=== PATIENT | female | born 1965 | race Hispanic/Latino ===

== ENCOUNTER 2017-04-07 14:24 | Outpatient (CLI) | payer OTHER ==
[~2017-04-07 14:24] MED LIST: Gadobenate Dimeglumine 529 MG/1 ML (20ML VIAL) ONE
--- NOTE | 2017-04-07 16:32 | MRI ---
BRAIN MRI WITH AND WITHOUT CONTRAST: Comparison: 11-26-13, 10-13-15 History: Sellar mass. Technique: Brain MRI is performed with and without intravenous gadolinium administration. Multisequen tial, multiplanar imaging was performed. Pituitary protocol was utilized. FINDINGS: There is no parenchymal hemorrhage. No extraaxial hematoma. No parenchymal mass, mass effect, or midl ine shift. Brain volume is age appropriate. Cortical alvarez white matter differentiation is preserved. Ventricles and sulci are patent and symmetric. Central arterial flow voids are maintained. Absent res tricted diffusion. Adequate aeration of the sinuses and mastoid air cells. No pathologic enhancement of the brain parenchyma. Redemonstration of a 5 mm enhancing focus emanating from the midline of the sella. There is some mass effect upon the prechiasmatic optic nerve. Adenoma is favored. Remainder of the brain parenchyma is unremarkable. 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 POS: [facility]
== END 2017-04-07 14:25 | disposition home or self-care (01) ==
LOC: TBSIIMAG 14:24
PROVIDERS: ATTEND Surgery
DX: D49.7 Neoplasm of unspecified behavior of endocrine glands and other parts of nervous system (principal); D35.2 Benign neoplasm of pituitary gland
CPT/HCPCS: 70553; A9579

== ENCOUNTER 2017-12-22 08:08 | Outpatient (CLI) | payer OTHER | END 2017-12-22 08:09 | disposition home or self-care (01) | LOC: BICMAMMO 08:08 | PROVIDERS: ATTEND Obstetrics & Gynecology | DX: Z12.31 Encounter for screening mammogram for malignant neoplasm of breast (principal) | CPT/HCPCS: 77063; 77067 ==

== ENCOUNTER 2018-12-23 08:02 | Outpatient (CLI) | payer OTHER ==
--- NOTE | 2018-12-23 08:42 | MMO ---
Bilateral MAMMO Bilat Screen [facility]. CLINICAL HISTORY: Patient is 53 years old and is seen for screening. The patient has no family history of breast cancer. The patient has no personal history of cancer. VIEWS: The views performed were: bilateral craniocaudal with tomosynthesis and bilateral mediolateral oblique with tomosynthesis. FILMS COMPARED: The present examination has been compared to prior imaging studies performed at [facility] on 11/17/2014, 12/07/2015, 12/19/2016 and 12/22/2017. This study has been interpreted with the assistance of computer-aided detection. MAMMOGRAM FINDINGS: There are scattered fibroglandular densities. There are no suspicious masses, suspicious calcifications, or new areas of architectural distortion. IMPRESSION: THERE IS NO MAMMOGRAPHIC EVIDENCE OF MALIGNANCY. A ROUTINE FOLLOW-UP MAMMOGRAM IN 1 YEAR IS RECOMMENDED. THE RESULTS OF THIS EXAM WERE SENT TO THE PATIENT. ACR BI-RADS Category 1 - Negative MAMMOGRAPHY NOTE: 1. A negative mammogram report should not delay a biopsy if a dominant of clinically suspicious mass is present. 2. Approximately 10% to 15% of breast cancers are not detected by mammography. 3. Adenosis and dense breasts may obscure an underlying neoplasm. Reported by: JONNIE SANDERS MD Electonically Signed: [id number]
== END 2018-12-23 08:03 | disposition home or self-care (01) ==
LOC: BICMAMMO 08:02
PROVIDERS: ATTEND Obstetrics & Gynecology
DX: Z12.31 Encounter for screening mammogram for malignant neoplasm of breast (principal)
CPT/HCPCS: 77063; 77067

== ENCOUNTER 2019-12-29 07:53 | Outpatient (CLI) | payer OTHER ==
--- NOTE | 2019-12-29 08:27 | MMO ---
Bilateral MAMMO Bilat Screen [facility]. CLINICAL HISTORY: Patient is 54 years old and is seen for screening. The patient has no family history of breast cancer. The patient has no personal history of cancer. VIEWS: The views performed were: bilateral craniocaudal with tomosynthesis and bilateral mediolateral oblique with tomosynthesis. FILMS COMPARED: The present examination has been compared to prior imaging studies performed at [facility] on 12/07/2015, 12/19/2016, 12/22/2017 and 12/23/2018. This study has been interpreted with the assistance of computer-aided detection. MAMMOGRAM FINDINGS: There are scattered fibroglandular densities. Benign calcifications are noted bilaterally. Nodularity is stable. There are no suspicious masses, suspicious calcifications, or new areas of architectural distortion. IMPRESSION: THERE IS NO MAMMOGRAPHIC EVIDENCE OF MALIGNANCY. A ROUTINE FOLLOW-UP MAMMOGRAM IN 1 YEAR IS RECOMMENDED. THE RESULTS OF THIS EXAM WERE SENT TO THE PATIENT. ACR BI-RADS Category 2 - Benign finding MAMMOGRAPHY NOTE: 1. A negative mammogram report should not delay a biopsy if a dominant of clinically suspicious mass is present. 2. Approximately 10% to 15% of breast cancers are not detected by mammography. 3. Adenosis and dense breasts may obscure an underlying neoplasm. Reported by: RADHA DOZIER MD Electonically Signed: [id number]
== END 2019-12-29 07:54 | disposition home or self-care (01) ==
LOC: BICMAMMO 07:53
PROVIDERS: ATTEND Family Medicine
DX: Z12.31 Encounter for screening mammogram for malignant neoplasm of breast (principal)
CPT/HCPCS: 77063; 77067

== ENCOUNTER 2020-02-12 13:13 | Emergency (ER) | payer OTHER ==
[2020-02-12] MEDS ORDERED: Nitroglycerin 0.4 MG TAB 1 EACH ONE (13:44)
[2020-02-12] MEDS ORDERED: Aspirin Chewable 81 MG TAB ONE ×2 (13:44→13:45)
[2020-02-12 13:50] LABS: #Lymphocytes 1.3 thou/uL (1.20-3.40); #Monocytes 0.5 thou/uL (0.11-0.59); #Neutrophils 3.4 thou/uL (1.40-6.50); %Basophils 0.8 % (0.0-1.0); %Eosinophils 0.5 % (0.0-10.0); %Lymphocytes 25.2 % (21.0-51.0); %Monocytes 9.3 % (0.0-10.0); %Neutrophils 64.1 % (42.0-75.0); Hemoglobin 14.5 g/dL (12.0-16.0); Mean Corpuscular HGB CONC 32.4 g/dL (32.0-36.0); Mean Corpuscular Hemoglobin 27.8 pg (27.0-31.0); Mean Corpuscular Volume 85.8 fL (78.0-98.0); Mean Platelet Volume 8.7 fL (7.4-10.4); Platelet Count 247 thou/uL (130-400); Red Blood Cell (RBC) Count 5.21 mill/uL (4.20-5.40); White Blood Cell (WBC) Count 5.3 thou/uL (4.8-10.8)
--- NOTE | 2020-02-12 13:56 | RAD ---
Exam: Chest one view HISTORY: Chest pain. Comparison: None. FINDINGS: Cardiac silhouette: Normal Aorta: Unremarkable Pulmonary vessels: Normal Costophrenic angles: Clear LUNGS: No masses or consolidation. Pneumothorax: None Osseous abnormalities: None IMPRESSION: No acute cardiopulmonary process.
[2020-02-12 14:12] LABS: ALT (SGPT) 29 U/L (8-55); AST (SGOT) 29 U/L (5-34); Alkaline Phosphatase 108 U/L (40-110); Anion Gap 14 mmol/L (10-20); BUN (Urea Nitrogen) 23 mg/dL (9.8-20.1); Bilirubin, Total 0.4 mg/dL (0.2-1.2); CK (CPK) 34 U/L (29-168); Calc. Creatinine Clearance 0 mL/min (70-130); Calcium 9.5 mg/dL (7.8-10.44); Carbon Dioxide 27 mmol/L (22-29); Chloride 101 mmol/L (98-107); Glucose 95 mg/dL (70-105); Lipase 19 U/L (8-78); Sodium 138 mmol/L (136-145)
[2020-02-12 16:57] LABS: Troponin I Less than 0.010 ng/mL (< 0.028)
== END 2020-02-12 18:05 | disposition home or self-care (01) ==
LOC: ERS 13:13
DX: R07.9 Chest pain, unspecified (principal)
CPT/HCPCS: 36415; 71045; 80053; 82550; 83690; 84484; 85025; 93005

== ENCOUNTER 2020-05-16 14:46 | Outpatient (CLI) | payer BC | END 2020-05-16 14:47 | disposition home or self-care (01) | LOC: TBSIIMAG 14:46 | PROVIDERS: ATTEND Surgery | DX: D35.2 Benign neoplasm of pituitary gland (principal) | CPT/HCPCS: 70553 ==

== ENCOUNTER 2020-07-18 15:00 | Outpatient (CLI) | payer BC | END 2020-07-18 15:01 | disposition home or self-care (01) | LOC: BICRAD 15:00 | PROVIDERS: ATTEND Family Medicine | DX: M79.18 Myalgia, other site (principal); M51.9 Unspecified thoracic, thoracolumbar and lumbosacral intervertebral disc disorder; M47.816 Spondylosis without myelopathy or radiculopathy, lumbar region | CPT/HCPCS: 72100 ==

== ENCOUNTER 2021-02-15 14:26 | Outpatient (CLI) | payer BC | END 2021-02-15 14:27 | disposition home or self-care (01) | LOC: SCSMRI 14:26 | PROVIDERS: ATTEND Psychiatry & Neurology Neurology | DX: R51.9 Headache, unspecified (principal); E23.6 Other disorders of pituitary gland | CPT/HCPCS: 70553 ==

== ENCOUNTER 2021-04-08 06:06 | Emergency (ER) | payer BC ==
[2021-04-08 06:30] LABS: #Basophils 0.1 thou/uL (0.0-0.2); #Eosinphils 0.2 thou/uL (0.0-0.7); #Monocytes 0.5 thou/uL (0.11-0.59); %Basophils 1.5 % (0.0-1.0); %Eosinophils 2.1 % (0.0-10.0); %Lymphocytes 38.4 % (21.0-51.0); %Monocytes 6.8 % (0.0-10.0); %Neutrophils 51.2 % (42.0-75.0); Mean Corpuscular HGB CONC 31.8 g/dL (32.0-36.0); Mean Corpuscular Hemoglobin 28.9 pg (27.0-31.0); Mean Corpuscular Volume 90.9 fL (78.0-98.0); Mean Platelet Volume 9.4 fL (7.4-10.4); Platelet Count 257 thou/uL (130-400); RBC Distribution Width 12.3 % (11.5-14.5); Red Blood Cell (RBC) Count 4.85 mill/uL (4.20-5.40); White Blood Cell (WBC) Count 7.7 thou/uL (4.8-10.8)
[2021-04-08 06:52] LABS: ALT (SGPT) 17 U/L (8-55); AST (SGOT) 19 U/L (5-34); Alkaline Phosphatase 110 U/L (40-110); Anion Gap 11 mmol/L (10-20); BUN (Urea Nitrogen) 20 mg/dL (9.8-20.1); Bilirubin, Total 0.6 mg/dL (0.2-1.2); Calc. Creatinine Clearance 0 mL/min (70-130); Calcium 9.8 mg/dL (7.8-10.44); Carbon Dioxide 29 mmol/L (22-29); Chloride 103 mmol/L (98-107); Globulin 3.8 g/dL (2.4-3.5); Glucose 102 mg/dL (70-105); Potassium 3.8 mmol/L (3.5-5.1); Protein, Total 7.8 g/dL (6.0-8.3); Sodium 139 mmol/L (136-145)
== END 2021-04-08 07:50 | disposition home or self-care (01) ==
LOC: ERS 06:06
DX: R07.89 Other chest pain (principal); I10 Essential (primary) hypertension
CPT/HCPCS: 71045; 80053; 84484; 85025; 93005

== ENCOUNTER 2022-05-02 15:01 | Outpatient (CLI) | payer OTHER | END 2022-05-02 15:02 | disposition home or self-care (01) | LOC: TBSIIMAG 15:01 → EDSTATUS 05-08 08:30 | PROVIDERS: ATTEND Nurse Practitioner Family | DX: S80.01XD Contusion of right knee, subsequent encounter (principal); S83.271A Complex tear of lateral meniscus, current injury, right knee, initial encounter; M17.11 Unilateral primary osteoarthritis, right knee ==